=== PATIENT | female | born 1965 | race Caucasian/White ===

== ENCOUNTER → 2021-06-18 | Outpatient (CLI) | payer BC, OTHER ==
[~2021-06-18] MED LIST: ANTI-DIARRHEA2 MG PO; BUSPIRONE HCL10 MG PO; BYSTOLIC5 MG PO; HYDROCHLOROTHIA25 MG PO; IRON325 M1 PO; PANTOPRAZOLE SO40 MG PO; QUETIAPINE FUMA50 MG PO; RAMIPRIL5 MG PO; RANITIDINE HCL150 MG PO; VENLAFAXINE HC150 M1 PO
== END ==
LOC: KOH-I 10:26
DX: R10.13 Epigastric pain (principal); F41.1 Generalized anxiety disorder
CPT/HCPCS: 76705

== ENCOUNTER 2022-02-28 11:08 | Emergency (ER) | payer BC, OTHER ==
[2022-02-28 12:05] LABS: HEMOGLOBIN 13.6 gm/dl (12.3-15.3); RED BLOOD COUNT 4.58 M/UL (4.00-5.10)
[2022-02-28 12:39] LABS: BUN/CREATININE RATIO 7 (0-10)
[2022-02-28] MEDS ORDERED: KLOR-CON 1010 MEQ PO (13:07)
[2022-02-28] MEDS ORDERED: ONDANSETRON ODT4 MG PO (13:14)
== END 2022-02-28 13:39 | disposition home or self-care (01) ==
LOC: ER1 11:08
PROVIDERS: Nurse Practitioner
DX: E87.6 Hypokalemia (principal); R11.10 Vomiting, unspecified; R19.7 Diarrhea, unspecified; I10 Essential (primary) hypertension; Z20.822 Contact with and (suspected) exposure to COVID-19
CPT/HCPCS: 0240U; 80053; 81001; 82550; 82553; 84484; 85025; 87086; 93005; 96374; 99284; J2405

== ENCOUNTER → 2022-05-19 | Outpatient (CLI) | payer BC, OTHER ==
[~2022-05-19] MED LIST changes: +KLOR-CON 1010 MEQ PO; +ONDANSETRON ODT4 MG PO
== END ==
LOC: EXRD 08:25
DX: R10.13 Epigastric pain (principal); F41.1 Generalized anxiety disorder; F33.0 Major depressive disorder, recurrent, mild
CPT/HCPCS: 76705